=== PATIENT | female | born 1960 | race Hispanic/Latino ===

== ENCOUNTER → 2018-07-19 | Outpatient (CLI) | payer OTHER ==
--- NOTE | 2018-07-19 12:58 | Diagnostic Imaging Report ---
EXAMINATION: PA and lateral views of the chest. COMPARISON: None CLINICAL HISTORY: Preop, shoulder surgery DISCUSSION: Lines/tubes: None. Lungs: The lungs are well inflated and clear. There is no evidence of pneumonia or pulmonary edema. Pleura: There is no pleural effusion or pneumothorax. Heart and mediastinum: The cardiomediastinal silhouette is normal. Bones and soft tissues: No acute bony abnormalities. Degenerative changes in the thoracic spine IMPRESSION: No acute cardiopulmonary abnormalities. Signed by: Dr. Silverio Smith M.D. on 07/19/2018 12:55 PM
== END ==
LOC: RAD 12:02
PROVIDERS: ATTEND Family Medicine
DX: Z01.818 Encounter for other preprocedural examination (principal); M75.102 Unspecified rotator cuff tear or rupture of left shoulder, not specified as traumatic
CPT/HCPCS: 71046; 93005

== ENCOUNTER 2018-09-29 10:50 | Outpatient (RCR) | payer OTHER | END 2018-10-04 | LOC: PT 10:50 | PROVIDERS: ATTEND Orthopaedic Surgery | DX: Z98.890 Other specified postprocedural states (principal); S43.422A Sprain of left rotator cuff capsule, initial encounter | CPT/HCPCS: 97010 ×3; 97110 ×6; 97112; 97140 ×4; 97162; G8984; G8985 ==

== ENCOUNTER 2018-11-03 09:00 | Outpatient (RCR) | payer OTHER | END 2018-11-04 | LOC: PT 09:00 | PROVIDERS: ATTEND Orthopaedic Surgery | DX: M75.122 Complete rotator cuff tear or rupture of left shoulder, not specified as traumatic (principal); M62.81 Muscle weakness (generalized); M25.512 Pain in left shoulder; M25.612 Stiffness of left shoulder, not elsewhere classified ==

== ENCOUNTER 2018-11-30 09:00 | Outpatient (RCR) | payer OTHER | END 2018-12-02 | LOC: PT 09:00 | PROVIDERS: ATTEND Orthopaedic Surgery | DX: M75.122 Complete rotator cuff tear or rupture of left shoulder, not specified as traumatic (principal); Z98.890 Other specified postprocedural states ==

== ENCOUNTER 2018-12-28 09:00 | Outpatient (RCR) | payer OTHER | END 2019-01-02 | LOC: PT 09:00 | PROVIDERS: ATTEND Orthopaedic Surgery | DX: M75.122 Complete rotator cuff tear or rupture of left shoulder, not specified as traumatic (principal) | CPT/HCPCS: 97139 ==

== ENCOUNTER 2019-02-23 08:59 | Outpatient (RCR) | payer OTHER | END 2019-03-04 | LOC: PT 08:59 | PROVIDERS: ATTEND Orthopaedic Surgery | DX: M75.02 Adhesive capsulitis of left shoulder (principal); M75.122 Complete rotator cuff tear or rupture of left shoulder, not specified as traumatic ==

== ENCOUNTER 2019-03-29 11:00 | Outpatient (RCR) | payer SELFPAY | END 2019-04-03 | LOC: PT 11:00 | PROVIDERS: ATTEND Orthopaedic Surgery | DX: M75.122 Complete rotator cuff tear or rupture of left shoulder, not specified as traumatic (principal); M75.02 Adhesive capsulitis of left shoulder | CPT/HCPCS: 97139 ==

== ENCOUNTER 2019-04-14 09:00 | Outpatient (RCR) | payer SELFPAY | END 2019-05-04 | LOC: PT 09:00 | PROVIDERS: ATTEND Orthopaedic Surgery | DX: M75.122 Complete rotator cuff tear or rupture of left shoulder, not specified as traumatic (principal); M75.02 Adhesive capsulitis of left shoulder; M25.512 Pain in left shoulder; M62.81 Muscle weakness (generalized) ==

== ENCOUNTER → 2019-08-19 | Outpatient (CLI) | payer OTHER | LOC: MAMMO 09:49 | PROVIDERS: ATTEND Obstetrics & Gynecology | DX: Z12.31 Encounter for screening mammogram for malignant neoplasm of breast (principal) | CPT/HCPCS: 77067 ==

== ENCOUNTER → 2019-08-23 | Outpatient (CLI) | payer OTHER ==
--- NOTE | 2019-08-23 09:40 | Diagnostic Imaging Report ---
Left hand, 3 views Clinical indication: Left hand pain Comparison: None Findings: There is no radiographic evidence of acute fracture. There are subtle subluxation of the first carpometacarpal joint. The bone mineralization is normal. No osseous erosions are identified. Impression: Subtle subluxation of the first carpometacarpal joint without radiographic evidence of acute fracture. Signed by: Colby Lubin MD on 08/23/2019 9:37 AM
== END ==
LOC: RAD 08:57
PROVIDERS: ATTEND Family Medicine
DX: M79.642 Pain in left hand (principal)

== ENCOUNTER 2021-08-02 08:00 | Outpatient (RCR) | payer OTHER | END 2021-08-04 | LOC: PT 08:00 | PROVIDERS: ATTEND Physical Medicine & Rehabilitation | DX: M54.50 Low back pain, unspecified (principal); G89.29 Other chronic pain; M53.3 Sacrococcygeal disorders, not elsewhere classified; M54.2 Cervicalgia; M62.81 Muscle weakness (generalized); M53.82 Other specified dorsopathies, cervical region ==

== ENCOUNTER 2021-08-15 08:58 | Outpatient (RCR) | payer OTHER | END 2021-09-03 | LOC: PT 08:58 | PROVIDERS: ATTEND Physical Medicine & Rehabilitation | DX: M54.50 Low back pain, unspecified (principal); G89.29 Other chronic pain; M53.3 Sacrococcygeal disorders, not elsewhere classified; M54.2 Cervicalgia ==